=== PATIENT | male | born 1990 | race Two or more races ===

== ENCOUNTER 2024-01-26 17:59 | Emergency (ER) | payer OTHER ==
[~2024-01-26] VITALS: Ht 165.1 cm; Wt 59.0 kg
[2024-01-26 20:18] VITALS: BP 141/85; TEMP 98.5; O2SAT 97
== END 2024-01-26 20:18 | disposition home or self-care (01) ==
LOC: ER 18:06
DX: N50.89 Other specified disorders of the male genital organs (principal)
CPT/HCPCS: 76870-TC